=== PATIENT | male | born 1950 | race Caucasian/White ===

== ENCOUNTER 2019-07-31 08:17 | Emergency (ER) | payer MEDICARE, BC ==
[~2019-07-31] VITALS: Ht 167.6 cm; Wt 100.0 kg
[~2019-07-31 08:17] MED LIST: ASPIRIN E.C. 8181 MG PO; CATAPRES 0.1MG0.1 MG PO; FISH OIL500 MG PO; HYZAAR 25 MG-101 TAB PO; K-DUR 10 MEQ T10 MEQ PO; TRICOR145 MG PO; ZOCOR 40MG40 MG PO
[2019-07-31 08:23] VITALS: TEMP 97.1
[2019-07-31] MEDS ORDERED: [UNRECOGNIZED DRUG - OTHER] PO (08:28)
[2019-07-31] MEDS ORDERED: VITAMIND3 5000 PO (08:30)
[2019-07-31] MEDS ORDERED: MAGNESIUM250 M1 PO (08:30)
[2019-07-31] MEDS ORDERED: KAPSPARGO SPRIN25 MG PO (08:31)
[2019-07-31 09:02] LABS: BASO % 0.4 % (0.0-2.0); EOS # 0.2 (0.0-0.7); EOS % 2.1 % (0-4.0); GRAN % 69.4 % (42.2-75.2); HEMOGLOBIN 17.8 g/dl (13.5-18.0); LYMPH # 2.3 (1.2-3.4); LYMPH % 22.8 % (20.0-51.0); MEAN CELL VOLUME 85 fl (80.0-100.0); MEAN CORPUSCULAR HEMOGLOBIN 30 pg (27.0-31.0); MEAN CORPUSCULAR HGB CONC 35 g/dl (33.0-37.0); MEAN PLATELET VOLUME 9.4 fl (7.4-10.4); MONO # 0.5 (0.1-0.6); MONO % 4.9 % (1.7-9.3); PLATELET COUNT 234 K/mm3 (130-400); RED BLOOD COUNT 5.99 M/mm3 (4.20-5.60); REDCELL DISTRIBUTION WIDTH-CV 13.6 % (11.5-14.5)
[2019-07-31 09:14] LABS: ALBUMIN 4.7 gm/dL (3.5-5.0); BILIRUBIN,TOTAL 0.6 mg/dL (0.0-1.0); C-REACTIVE PROTEIN 1.3 mg/dL (0.0-0.9); CALCIUM 9.4 mg/dL (8.4-10.2); CREATININE, serum 1.12 (0.66-1.25); POTASSIUM 3.7 mmol/L (3.4-5.0)
[2019-07-31] MEDS ORDERED: BONINE25 MG PO (09:32)
[2019-07-31] MEDS ORDERED: ZOFRAN ODT4 MG PO (09:32)
[2019-07-31 09:41] LABS: COLLECTION METHOD CLEAN CATCH
[2019-07-31 09:47] LABS: PH 5 (5-8); SQUAMOUS EPITHELIAL None Seen /hpf; URINE APPEARANCE Clear; URINE BACTERIA None Seen /hpf; URINE BILIRUBIN Negative (NEGATIVE); URINE BLOOD Negative (NEGATIVE); URINE COLOR Yellow; URINE GLUCOSE Negative (NEGATIVE); URINE KETONE 1+ (NEGATIVE); URINE LEUKOCYTE ESTERASE Negative (NEGATIVE); URINE NITRATE Negative (NEGATIVE); URINE PROTEIN(semi-quant) 1+ (NEGATIVE); URINE RBC 0-2 /hpf; URINE UROBILINOGEN Negative (NEGATIVE)
[2019-07-31 10:38] VITALS: BP 130/66; PULSE 59
== END 2019-07-31 10:30 | disposition home or self-care (01) ==
LOC: COL.ER 08:17
PROVIDERS: Family Medicine
DX: H81.21 Vestibular neuronitis, right ear (principal); I10 Essential (primary) hypertension
CPT/HCPCS: J2405; J7030

== ENCOUNTER → 2020-09-22 | Outpatient (CLI) | payer MEDICARE, BC ==
[~2020-09-22] MED LIST changes: +BONINE25 MG PO; +KAPSPARGO SPRIN25 MG PO; +MAGNESIUM250 M1 PO; +VITAMIND3 5000 PO; +ZOFRAN ODT4 MG PO; +[UNRECOGNIZED DRUG - OTHER] PO
== END ==
LOC: COL.CARD 07:38
DX: I48.91 Unspecified atrial fibrillation (principal)

== ENCOUNTER → 2022-04-24 | Outpatient (REF) | LOC: COL.CARD 10:14 | DX: Z01.810 Encounter for preprocedural cardiovascular examination (principal) ==

== ENCOUNTER 2023-09-02 22:23 | Emergency (ER) | payer MEDICARE, BC ==
[~2023-09-02] VITALS: Ht 167.6 cm; Wt 106.8 kg
[~2023-09-02 22:23] MED LIST changes: +BACTRIM DS 8001 TAB PO; +CEPHALEXIN500 M1 PO; +NORCO 325 MG-51 TAB PO
[2023-09-02 22:32] VITALS: TEMP 98
[2023-09-02 23:05] LABS: ANION GAP 17 mmol/L (7-16); BLOOD UREA NITROGEN 29 mg/dL (8-26); CALCIUM 11.1 mg/dL (8.4-10.2); CARBON DIOXIDE 19 mmol/L (23-31); CHLORIDE 104 mmol/L (98-107); CREATININE, serum 1.46 mg/dL (0.72-1.25); GLUCOSE 94 mg/dL (70-99); POTASSIUM 3.8 mmol/L (3.5-4.5); SODIUM 140 mmol/L (136-145)
[2023-09-02 23:16] LABS: TROPONIN-I < 0.010 ng/mL (0.00-0.033)
[2023-09-02 23:25] VITALS: BP 130/65; PULSE 55
== END 2023-09-02 23:30 | disposition home or self-care (01) ==
LOC: COL.ER 22:23
PROVIDERS: Emergency Medicine
DX: I10 Essential (primary) hypertension (principal)